=== PATIENT | male | born 1980 ===

== ENCOUNTER → 2022-04-03 | Outpatient (CLI) | payer OTHER ==
[~2022-04-03] VITALS: Ht 175.3 cm; Wt 99.8 kg
== END | disposition home or self-care (01) ==
LOC: Rad HDHVI 09:11
PROVIDERS: ATTEND Internal Medicine
DX: E78.5 Hyperlipidemia, unspecified (principal)
CPT/HCPCS: 93017

== ENCOUNTER → 2022-04-05 | Outpatient (CLI) | payer OTHER | END | disposition home or self-care (01) | LOC: Rad HDHVI 15:25 | PROVIDERS: ATTEND Internal Medicine | DX: I35.8 Other nonrheumatic aortic valve disorders (principal); E78.5 Hyperlipidemia, unspecified | CPT/HCPCS: 93306 ==